=== PATIENT | female | born 1995 | race Caucasian/White ===

== ENCOUNTER 2017-09-08 11:09 | Emergency (ER) | payer SELFPAY ==
[2017-09-08] MEDS ORDERED: NS 0.9% 1000 ML* 1,000 ML IV ONE (12:00)
[2017-09-08] MEDS ORDERED: Metoclopramide IV* 5 MG/ML 2 ML VIAL IV SLOW PU ONE (12:01)
[2017-09-08] MEDS ORDERED: Morphine VIAL* 4 MG/ML VIAL (1 ml vial) IV ONE (12:01)
[2017-09-08 12:20] LABS: ABS Basophils 0 10^3/ul (0-0.2); ABS Eosinophils 0 10^3/ul (0-0.6); ABS Lymphocytes 1.3 10^3/ul (1.0-4.8); ABS Monocytes 0.9 10^3/ul (0-0.8); ABS Neutrophils 18.4 10^3/ul (1.5-7.7); ABS Nucleated RBC 0 10^3/ul; Eosinophil % 0.2 % (0-6); Hematocrit 40 % (35-47); Hemoglobin 13.3 g/dl (12.0-16.0); Lymphocyte % 6.1 % (25-47); Mean Corpuscular HGB Conc 33 g/dl (31-36); Mean Corpuscular Hemoglobin 29 pg (27-31); Mean Corpuscular Volume 87 fL (80-97); Nucleated Red Blood Cells % 0; Platelet Count 375 10^3/ul (150-450); Red Blood Count 4.64 10^6/ul (4.00-5.40); Red Cell Distribution Width 13 % (10.5-15); White Blood Count 20.6 10^3/ul (3.5-10.8)
[2017-09-08 12:42] LABS: EGFR Non-African American 100.4 (>60)
--- NOTE | 2017-09-08 13:08 | RAD ---
INDICATION: Lower pelvic pain. IUD. COMPARISON: June 30, 2010 TECHNIQUE: Longitudinal and transverse transvaginal scans of the pelvis were obtained. FINDINGS: Uterus: The uterus is normal in size. There are no focal masses. The uterus measures 7.6 x 3.2 x 3.9 cm. Endometrial thickness: The endometrial thickness is measured at 1.1 cm. There is an IUD in expected position. Free fluid: There is a small amount of free fluid in the cul-de-sac . Ovaries: The ovaries are normal in size. The right ovary measures 4.8 x 3.3 x 2.9 cm. The left ovary measures 2.5 x 1.9 x 2.0 cm. There is a complex 2.4 x 2.1 x 2.4 cm cyst in the right ovary and a second complex cyst measuring 1.8 x 2.3 x 2.0 cm. Doppler interrogation demonstrates flow to each ovary. Other: None IMPRESSION: IUD IN EXPECTED POSITION. COMPLEX RIGHT OVARIAN CYSTS. CONSIDER FOLLOW-UP TO 3 MENSTRUAL CYCLES
--- NOTE | 2017-09-08 13:12 | ED ---
Abdominal Pain/Female - HPI Summary HPI Summary: Patient here with abdominal pain on and off the past 3 days. Nausea with vomiting started today and abdominal pain is worse. She reports this is in her lower pelvic region, most notably in her right lower quadrant. She denies fever but admits to chills. She denies headache, upper respiratory symptoms ( she is over a cold from last week), neck pain/stiffness, chest pain, shortness of breath, cough, skin changes, numbness, tingling, weakness, vaginal discharge , flank pain, urinary frequency/urgency/dysuria/hematuria. Last bowel movement was yesterday which seemed to be normal however today she had small and strained bowel movement. She admits she's not been eating much the past 3 days due to her abdominal pain and nausea. She also has a history of GERD for which she takes Tums and seems to get relief with these as needed. She only gets heartburn when she eats certain foods or tries to avoid them. She only takes ibuprofen for menstrual cramps once a month but this is not often. She has a copper IUD in place with history of perforation. This does not feel the same. She also admits to sexual activity including oral, vaginal and anal. Denies concern for STD although wouldn't mind being tested. Denies any recent trauma although she has had dyspareunia due to her partner size. Feels safe in her current relationship although she is anxious today she plans to break up with her current partner - states he is "too young for her" and for other reasons. She was going to speak with him later today -mitts this is creating a lot of anxiety for her which can sometimes lead to GI symptoms. - History of Current Complaint Chief Complaint: EDCheriin Stated Complaint: ABD PAIN/VOMITING Time Seen by Provider: 09/08/17 11:28 Hx Obtained From: Patient Hx Last Menstrual Period: 01/06/15 Pain Intensity: 7 Allergies/Adverse Reactions: Allergies Allergy/AdvReac Type Severity Reaction Status Date / Time ibuprofen Allergy See Comment Verified 09/08/17 11:14 PMH/Surg Hx/FS Hx/Imm Hx Previously Healthy: Yes Endocrine/Hematology History: Reports: Hx Unexplained Bleeding - h/o "low platelets" not consistent - unsure why Denies: Hx Anticoagulant Therapy, Hx Diabetes, Hx Thyroid Disease Cardiovascular History: Denies: Hx Hypertension Respiratory History: Reports: Hx Asthma Denies: Hx Chronic Obstructive Pulmonary Disease (COPD) GI History: Reports: Hx Gastroesophageal Reflux Disease - occasionally - controlled w/ diet and Tums Denies: Hx Ulcer History: Reports: Hx Kidney Infection Psychiatric History: Denies: Hx Eating Disorder, Hx of Violent Episodes Against Others - Immunization History Immunizations Up to Date: Yes Infectious Disease History: No Infectious Disease History: Denies: Hx Clostridium Difficile, Hx Hepatitis, Hx Human Immunodeficiency Virus (HIV), Hx of Known/Suspected MRSA, Hx Shingles, Hx Tuberculosis, Hx Known/ Suspected VRE, Hx Known/Suspected VRSA, History Other Infectious Disease, Traveled Outside the [place] in Last 30 Days - Family History Known Family History: Positive: Cardiac Disease, Hypertension, Diabetes - Social History Alcohol Use: Weekly - small amounts Hx Substance Use: No Substance Use Type: Reports: Marijuana Substance Use Comment - Amount & Last Used: every other day Hx Tobacco Use: No Smoking Status (MU): Never Smoked Tobacco Have You Smoked in the Last Year: No Review of Systems Positive: Chills, Fatigue. Negative: Fever Eyes: Negative ENT: Negative Cardiovascular: Negative Respiratory: Negative Positive: Abdominal Pain, Vomiting, Nausea. Negative: Diarrhea Positive: see HPI Musculoskeletal: Negative Skin: Negative Neurological: Negative Positive: Anxious All Other Systems Reviewed And Are Negative: Yes Physical Exam Triage Information Reviewed: Yes Vital Signs On Initial Exam: Initial Vitals Temp Pulse Resp BP Pulse Ox 98.2 F 56 16 146/83 99 09/08/17 11:11 09/08/17 11:11 09/08/17 11:11 09/08/17 11:11 09/08/17 11:11 Vital Signs Reviewed: Yes Appearance: Positive: Well-Nourished, Ill-Appearing - generalized pallor, Pain Distress Skin: Positive: Warm, Skin Color Reflects Adequate Perfusion, Dry Head/Face: Positive: Normal Head/Face Inspection Eyes: Positive: Normal, EOMI, Conjunctiva Clear - anicteric sclera ENT: Positive: Normal ENT inspection, Hearing grossly normal, Pharynx normal - mucosa moist Neck: Positive: Supple, Nontender, No Lymphadenopathy Respiratory/Lung Sounds: Positive: Clear to Auscultation, Breath Sounds Present. Negative: Rales, Rhonchi, Wheezes Cardiovascular: Positive: Normal, RRR, S1, S2 Abdomen Description: Positive: Soft, McBurney's Point Tenderness - no rebounding ; (-) obturator, (-) psoas, Other: - also tender over lower central ab and LLQ - no rebounding. Negative: CVA Tenderness (R), CVA Tenderness (L), Distended, Guarding, Hernia @ Bowel Sounds: Positive: Present Pelvic Exam: Positive: External Exam Normal, No Cerv. Motion Tender, No Masses, Discharge - milky white, Tender Adnexa - Rt (mild), Other - white strings observed from cervical os. Negative: Tender Uterus, Ulcers Musculoskeletal: Positive: Normal, Strength/ROM Intact Neurological: Positive: Normal, Sensory/Motor Intact, Alert, Oriented to Person Place, Time, CN Intact II-III Psychiatric: Positive: Anxious Diagnostics - Vital Signs Vital Signs Temp Pulse Resp BP Pulse Ox 09/08/17 11:11 98.2 F 56 16 146/83 99 - Laboratory Lab Results: Lab Results 09/08/17 09/08/17 09/08/17 Range/Units 12:14 12:14 12:14 WBC 20.6 H (3.5-10.8) 10^3/ul RBC 4.64 (4.00-5.40) 10^6/ul Hgb 13.3 (12.0-16.0) g/dl Hct 40 (35-47) % MCV 87 (80-97) fL MCH 29 (27-31) pg MCHC 33 (31-36) g/dl RDW 13 (10.5-15) % Plt Count 375 (150-450) 10^3/ul MPV 8.0 (7.4-10.4) um3 Neut % (Auto) 89.1 H (38-83) % Lymph % (Auto) 6.1 L (25-47) % [place] % (Auto) 4.4 (0-7) % Eos % (Auto) 0.2 (0-6) % Baso % (Auto) 0.2 (0-2) % Absolute Neuts (auto) 18.4 H (1.5-7.7) 10^3/ul Absolute Lymphs (auto) 1.3 (1.0-4.8) 10^3/ul Absolute Monos (auto) 0.9 H (0-0.8) 10^3/ul Absolute Eos (auto) 0 (0-0.6) 10^3/ul Absolute Basos (auto) 0 (0-0.2) 10^3/ul Absolute Nucleated RBC 0 10^3/ul Nucleated RBC % 0 INR (Anticoag Therapy) 1.00 (0.77-1.02) APTT 24.8 L (26.0-36.3) seconds Sodium 138 L (139-145) mmol/L Potassium 3.7 (3.5-5.0) mmol/L Chloride 102 (101-111) mmol/L Carbon Dioxide 25 (22-32) mmol/L Anion Gap 11 (2-11) mmol/L BUN 10 (6-24) mg/dL Creatinine 0.72 (0.51-0.95) mg/dL Est GFR ( Amer) 129.1 (>60) Est GFR (Non-Af Amer) 100.4 (>60) BUN/Creatinine Ratio 13.9 (8-20) Glucose 128 H (70-100) mg/dL Lactic Acid (0.5-2.0) mmol/L Calcium 9.9 (8.6-10.3) mg/dL Magnesium 2.0 (1.9-2.7) mg/dL Total Bilirubin 0.60 (0.2-1.0) mg/dL AST 12 L (13-39) U/L ALT 14 (7-52) U/L Alkaline Phosphatase 40 (34-104) U/L C-Reactive Protein 1.17 (< 5.00) mg/L Total Protein 7.3 (6.4-8.9) g/dL Albumin 4.4 (3.2-5.2) g/dL Globulin 2.9 (2-4) g/dL Albumin/Globulin Ratio 1.5 (1-3) Lipase < 10 L (11.0-82.0) U/L Beta HCG, Quant < 0.60 mIU/mL 09/08/17 Range/Units 12:14 WBC (3.5-10.8) 10^3/ul RBC (4.00-5.40) 10^6/ul Hgb (12.0-16.0) g/dl Hct (35-47) % MCV (80-97) fL MCH (27-31) pg MCHC (31-36) g/dl RDW (10.5-15) % Plt Count (150-450) 10^3/ul MPV (7.4-10.4) um3 Neut % (Auto) (38-83) % Lymph % (Auto) (25-47) % [place] % (Auto) (0-7) % Eos % (Auto) (0-6) % Baso % (Auto) (0-2) % Absolute Neuts (auto) (1.5-7.7) 10^3/ul Absolute Lymphs (auto) (1.0-4.8) 10^3/ul Absolute Monos (auto) (0-0.8) 10^3/ul Absolute Eos (auto) (0-0.6) 10^3/ul Absolute Basos (auto) (0-0.2) 10^3/ul Absolute Nucleated RBC 10^3/ul Nucleated RBC % INR (Anticoag Therapy) (0.77-1.02) APTT (26.0-36.3) seconds Sodium (139-145) mmol/L Potassium (3.5-5.0) mmol/L Chloride (101-111) mmol/L Carbon Dioxide (22-32) mmol/L Anion Gap (2-11) mmol/L BUN (6-24) mg/dL Creatinine (0.51-0.95) mg/dL Est GFR ( Amer) (>60) Est GFR (Non-Af Amer) (>60) BUN/Creatinine Ratio (8-20) Glucose (70-100) mg/dL Lactic Acid 1.1 (0.5-2.0) mmol/L Calcium (8.6-10.3) mg/dL Magnesium (1.9-2.7) mg/dL Total Bilirubin (0.2-1.0) mg/dL AST (13-39) U/L ALT (7-52) U/L Alkaline Phosphatase (34-104) U/L C-Reactive Protein (< 5.00) mg/L Total Protein (6.4-8.9) g/dL Albumin (3.2-5.2) g/dL Globulin (2-4) g/dL Albumin/Globulin Ratio (1-3) Lipase (11.0-82.0) U/L Beta HCG, Quant mIU/mL Result Diagrams: 09/08/17 12:14 09/08/17 12:14 Lab Statement: Any lab studies that have been ordered have been reviewed, and results considered in the medical decision making process. Re-Evaluation - Re-Evaluation First Eval Change: Improved - pt's pain and nausea improved w/ reglan Abdominal Pain Fem Course/Dx - Course Course Of Treatment: Patient presents with 3 days of abdominal pain which has progressed to nausea with vomiting today. She initially looked pale and anxious and in moderate distress. Her vital signs were within normal limits however her WBCs returned at 20 with mild left shift. Her urinalysis is without acute findings. Pt reports her pain and nausea resolved w/ reglan alone - she does not want to proceed w/ CT scan. Her TVUS reveals Rt complex ovarian cyst (pt reports she's had a h/o these in the past) and IUD in correct position. Her pelvic exam was unremarkable for PID (mild tenderness in Rt adnexa which correlates w/ cyst findings). Pt declines empiric STD tx today - will wait for cx results to tx is needed. Discussed her social situation of relationship issues and anxiety may have triggered majority of her sx. Advised restarting counseling which was helpful in the past. Also to f/u w/ Rt ovarian cyst for repeat imaging. She will additionally control her GERD w/ tums and gentle diet as she hasn't been eating much past few days. Also encouraged hydration to aid in better BM's. Reviewed danger s/sx of when to return to ED. Pt agrees w/ plan. - Diagnoses Provider Diagnoses: Abdominal pain, Right ovarian cyst, Anxiety Discharge - Sign-Out/Discharge Documenting (check all that apply): Discharge/Admit/Transfer - Discharge Plan Condition: Stable Disposition: HOME Patient Education Materials: Acute Abdominal Pain (ED), Ovarian Cyst (ED), Anxiety (ED) Referrals: Maxwell Brennan MD [Primary Care Provider] - Josette Saunders MD [Medical Doctor] - Additional Instructions: The definitive cause of your abdominal pain, nausea and vomiting vomiting was not identified today however you do have a right sided ovarian cyst. This needs to be followed up with your SOFTWARE TECHNICIAN with a repeat ultrasound. Call tomorrow to schedule follow-up. To treat this, you may use NSAIDs along with heat packs and/or castor oil packs. If pain worsens in this area, return to the emergency department. We also discussed that your abdominal pain with nausea and vomiting could've been triggered by your anxiety. You have seen a counselor in the past. It is advised that you reconnect with your counselor due to recent circumstances. Call tomorrow to schedule an appointment. If in the meantime you feel suicidal or homicidal, return to the emergency department. Furthermore, vaginal cultures were taken today. If these are positive you will receive a phone call and antibiotics may be sent to your pharmacy. If you develop worsening of pelvic pain or new onset of vaginal discharge in the meantime, seek medical attention or return to the emergency department. - Billing Disposition and Condition Condition: STABLE Disposition: Home
[2017-09-08 14:38] LABS: Urine Appearance Clear; Urine Blood Negative (Negative); Urine Color Yellow; Urine Ketones 2+ (Negative); Urine Protein Negative (Negative); Urine Specific Gravity 1.017 (1.010-1.030); Urine Urobilinogen Negative (Negative)
[2017-09-08] MEDS ORDERED: Iohexol 300* (CONTRAST) 10 ML SDV IV ONE (14:48)
[2017-09-08 16:08] VITALS: BP 121/84
== END 2017-09-08 17:50 | disposition home or self-care (01) ==
LOC: ED 11:09
DX: R10.31 Right lower quadrant pain (principal); N83.291 Other ovarian cyst, right side; R53.83 Other fatigue; R11.2 Nausea with vomiting, unspecified; F41.9 Anxiety disorder, unspecified; Z97.5 Presence of (intrauterine) contraceptive device; J45.909 Unspecified asthma, uncomplicated; K21.9 Gastro-esophageal reflux disease without esophagitis; Z88.6 Allergy status to analgesic agent; Z82.49 Family history of ischemic heart disease and other diseases of the circulatory system; Z83.3 Family history of diabetes mellitus
CPT/HCPCS: 36415; 76830; 80053; 81003; 83605; 83690; 83735; 84702; 85025; 85610; 85730; 86140; 96361; 96374; 99282; J2270; J2765

== ENCOUNTER 2018-01-20 18:47 | Emergency (ER) | payer SELFPAY ==
[2018-01-20 19:36] VITALS: BP 138/86
--- NOTE | 2018-01-20 20:18 | UC ---
Complaint Female HPI - HPI Summary HPI Summary: 22 year old female presents with onset of dysuria, urinary urgency, feeling of inability to empty bladder completely, and hematuria this morning. Denies fever , chills, back/flank pain, abdominal pain, nausea, vomiting, vaginal discharge, or dyspareunia. - History Of Current Complaint Chief Complaint: UCGU Stated Complaint: POSS UTI Time Seen by Provider: 01/20/18 19:53 Hx Obtained From: Patient Hx Last Menstrual Period: 2 weeks Onset/Duration: Gradual Onset Timing: Intermittent Pain Intensity: 0 Character: Burning Aggravating Factor(s): Urination Alleviating Factor(s): Nothing Associated Signs And Symptoms: Negative: Fever, Back Pain, Vaginal Bleeding/ Discharge, Nausea, Vomiting(# Of Episodes =), Genital Swelling, Genital Blisters - Allergies/Home Medications Allergies/Adverse Reactions: Allergies Allergy/AdvReac Type Severity Reaction Status Date / Time ibuprofen Allergy See Comment Verified 01/20/18 19:37 PMH/Surg Hx/FS Hx/Imm Hx Previously Healthy: Yes - Denies significant PMH Other History Of: Negative For: Anticoagulant Therapy - Surgical History Surgical History: None - Family History Known Family History: Positive: Cardiac Disease, Hypertension, Diabetes - Social History Occupation: Employed Full-time Lives: With Family Alcohol Use: Weekly Substance Use Type: Marijuana Substance Use Comment - Amount & Last Used: every other day Smoking Status (MU): Never Smoked Tobacco Have You Smoked in the Last Year: No Household Exposure Type: Cigarettes - Immunization History Most Recent Influenza Vaccination: n/a Most Recent Tetanus Shot: n/a Most Recent Pneumonia Vaccination: n/a Review of Systems Constitutional: Negative Respiratory: Negative Cardiovascular: Negative Gastrointestinal: Negative Genitourinary: Dysuria, Hematuria, Urgency Is Patient Immunocompromised?: No All Other Systems Reviewed And Are Negative: Yes Physical Exam Triage Information Reviewed: Yes Appearance: Well-Appearing, No Pain Distress, Well-Nourished Vital Signs: Initial Vital Signs Temp 98.5 F 01/20/18 19:32 Pulse 93 01/20/18 19:32 Resp 16 01/20/18 19:32 BP 138/86 01/20/18 19:32 Pulse Ox 100 01/20/18 19:32 Vital Signs Reviewed: Yes Respiratory: Positive: Lungs clear, Normal breath sounds, No respiratory distress Cardiovascular: Positive: RRR, No Murmur Abdomen Description: Positive: Nontender, No Organomegaly, Soft. Negative: CVA Tenderness (R), CVA Tenderness (L), Distended, Guarding Neurological: Positive: Alert Skin Exam: Normal Diagnostics - Laboratory Diagnostic Studies Completed/Ordered: POC UA 3+ protein, 3+ ketones, 3+ blood, 1 + bilirubin, 2+ leukocyte esterase Complaint Female Dx - Course Course Of Treatment: 22 year old female with onset of UTI symptoms this morning. Afebrile. Exam unremarkable. UA consistent with UTI. Will treat with 5 day course of Bactrim DS pending urine culture. Warning symtoms reviewed with patient. Verbalizes understanding and agrees with POC. - Differential Dx/Diagnosis Provider Diagnoses: acute urinary cystitis Discharge - Sign-Out/Discharge Documenting (check all that apply): Patient Departure All imaging exams completed and their final reports reviewed: No Studies - Discharge Plan Condition: Stable Disposition: HOME Prescriptions: Sulfamethox/Trimethoprim DS* [Bactrim DS 800/160 TAB*] 1 tab PO BID #10 tab Patient Education Materials: Urinary Tract Infection in Women (ED) Referrals: Maxwell Brennan MD [Primary Care Provider] - 5 Days (If no improvement in symptoms) Additional Instructions: The urine test was performed in the clinic today is consistent with a urinary tract infection. We will be sending the urine for culture to see what bacteria grow out and make sure that the antibiotic prescribed to you is appropriate for treatment. This will take approximately 48-72 hours for these results. Start Bactrim DS 1 tablet twice a day for 5 days. Be sure to push plenty of fluids. Follow-up with your primary care provider in 5 days if symptoms persist. Seek immediate medical attention if you develop a fever greater than 100.5 F, has severe abdominal pain, persistent vomiting, or any worsening of symptoms. - Billing Disposition and Condition Condition: STABLE Disposition: Home
== END 2018-01-20 20:35 | disposition home or self-care (01) ==
LOC: UCEAST 18:47
DX: N30.01 Acute cystitis with hematuria (principal); Z88.6 Allergy status to analgesic agent
CPT/HCPCS: 81003; 87077; 87086; 87186; 99212; G0463

== ENCOUNTER 2018-09-08 07:18 | Emergency (ER) | payer BC ==
[2018-09-08] MEDS ORDERED: Ondansetron INJ* 2 MG/ML VIAL IV ONE (07:25)
[2018-09-08] MEDS ORDERED: NS 0.9% 1000 ML** 1,000 ML IV ONE (07:25)
[2018-09-08] MEDS ORDERED: Famotidine TAB* 20 MG PO ONE (07:33)
[2018-09-08] MEDS ORDERED: Al Hydrox/Mg Hydrox/Simet LIQ* 30 ML UDC PO ONE (07:33)
--- NOTE | 2018-09-08 07:39 | ED ---
Abdominal Pain/Female - HPI Summary HPI Summary: Patient is a 22 y/o female with hx of endometriosis, GERD, asthma who presents with nausea x 2 days. She notes epigastric pain, vomiting x 2 episodes last night, and liquidy diarrhea beginning this morning. Took Tums last night without relief. Denies fevers, chills, headache, chest pain, cough, bloody stools, back pain, urinary symptoms. She states she has chronic right pelvic endometrial pain, worse today d/t current menstrual period. States her GERD often presents with nausea. Denies abdominal surgeries. - History of Current Complaint Chief Complaint: EDAbdPain Stated Complaint: NAUSEA AND VOMITTING PER PT Time Seen by Provider: 09/08/18 07:24 Hx Obtained From: Patient Hx Last Menstrual Period: Current Onset/Duration: Sudden Onset Timing: Constant Severity Initially: Mild Severity Currently: Mild Pain Intensity: 4 Location: Epigastric, Other - Right pelvic. Radiates: No Character: Cramping Aggravating Factor(s): Nothing Alleviating Factor(s): Nothing Associated Signs and Symptoms: Positive: Nausea, Vomiting, Diarrhea. Negative: Fever, Cough, Chest Pain, Back Pain, Blood in Stool, Urinary Symptoms Allergies/Adverse Reactions: Allergies Allergy/AdvReac Type Severity Reaction Status Date / Time ibuprofen Allergy See Comment Verified 09/08/18 07:23 PMH/Surg Hx/FS Hx/Imm Hx Previously Healthy: No Endocrine/Hematology History: Reports: Hx Unexplained Bleeding - h/o "low platelets" not consistent - unsure why Denies: Hx Anticoagulant Therapy, Hx Diabetes, Hx Thyroid Disease Cardiovascular History: Denies: Hx Hypertension Respiratory History: Reports: Hx Asthma Denies: Hx Chronic Obstructive Pulmonary Disease (COPD) GI History: Reports: Hx Gastroesophageal Reflux Disease - occasionally - controlled w/ diet and Tums Denies: Hx Ulcer History: Reports: Hx Kidney Infection, Other Problems/Disorders - Endometriosis. Psychiatric History: Denies: Hx Eating Disorder, Hx of Violent Episodes Against Others Infectious Disease History: No Infectious Disease History: Denies: Hx Clostridium Difficile, Hx Hepatitis, Hx Human Immunodeficiency Virus (HIV), Hx of Known/Suspected MRSA, Hx Shingles, Hx Tuberculosis, Hx Known/ Suspected VRE, Hx Known/Suspected VRSA, History Other Infectious Disease, Traveled Outside the [place] in Last 30 Days - Family History Known Family History: Positive: Cardiac Disease, Hypertension, Diabetes - Social History Alcohol Use: Weekly Hx Substance Use: No Substance Use Type: Reports: Marijuana Substance Use Comment - Amount & Last Used: every other day Hx Tobacco Use: Yes Smoking Status (MU): Current Some Day Smoker Type: Cigarettes Amount Used/How Often: Socially Have You Smoked in the Last Year: No Review of Systems Negative: Fever, Chills Negative: Chest Pain Negative: Cough Positive: Abdominal Pain - Epigastric., Vomiting, Diarrhea, Nausea Negative: dysuria, frequency, urgency Negative: Headache All Other Systems Reviewed And Are Negative: Yes Physical Exam Triage Information Reviewed: Yes Vital Signs On Initial Exam: Initial Vitals Temp Pulse Resp BP Pulse Ox 98.3 F 84 17 118/89 99 09/08/18 07:21 09/08/18 07:21 09/08/18 07:21 09/08/18 07:21 09/08/18 07:21 Vital Signs Reviewed: Yes Appearance: Positive: Well-Appearing, No Pain Distress Skin: Positive: Warm, Skin Color Reflects Adequate Perfusion, Dry Head/Face: Positive: Normal Head/Face Inspection Eyes: Positive: Normal, Conjunctiva Clear ENT: Positive: Normal ENT inspection Neck: Positive: Supple. Negative: Nuchal Rigidity Respiratory/Lung Sounds: Positive: Clear to Auscultation, Breath Sounds Present. Negative: Rales, Rhonchi, Wheezes Cardiovascular: Positive: RRR. Negative: Murmur, Rub Abdomen Description: Positive: Soft, Other: - mild pain R pelvis which pt states is chronic. Negative: Nontender - Chronis right pelvic tenderness, c/w endometriosis. No tenderness of remaining abdomen., Distended, McBurney's Point Tenderness, Peritoneal Signs Bowel Sounds: Positive: Present, Hypoactive Musculoskeletal: Positive: Normal, Strength/ROM Intact Neurological: Positive: Normal, Sensory/Motor Intact, Alert, Oriented to Person Place, Time Psychiatric: Positive: Normal Diagnostics - Vital Signs Vital Signs Temp Pulse Resp BP Pulse Ox 09/08/18 07:21 98.3 F 84 17 118/89 99 - Laboratory Lab Results: Laboratory Results - last 24 hr 09/08/18 09/08/18 09/08/18 07:32 07:32 07:32 WBC 8.8 RBC 4.92 H Hgb 14.0 Hct 42 MCV 86 MCH 29 MCHC 33 RDW 13 Plt Count 320 MPV 8.2 Neut % (Auto) 66.7 Lymph % (Auto) 21.7 [place] % (Auto) 10.3 Eos % (Auto) 0.9 Baso % (Auto) 0.4 Absolute Neuts (auto) 5.8 Absolute Lymphs (auto) 1.9 Absolute Monos (auto) 0.9 H Absolute Eos (auto) 0.1 Absolute Basos (auto) 0.0 Absolute Nucleated RBC 0.0 Nucleated RBC % 0.1 Sodium 138 Potassium 3.5 Chloride 105 Carbon Dioxide 24 Anion Gap 9 BUN 12 Creatinine 0.78 Est GFR ( Amer) 109.8 Est GFR (Non-Af Amer) 90.7 BUN/Creatinine Ratio 15.4 Glucose 84 Lactic Acid 0.6 Calcium 9.6 Total Bilirubin 0.60 AST 14 ALT 14 Alkaline Phosphatase 41 C-Reactive Protein 12.58 H Total Protein 7.1 Albumin 4.4 Globulin 2.7 Albumin/Globulin Ratio 1.6 Lipase < 10 L Beta HCG, Quant < 0.60 Result Diagrams: 09/08/18 07:32 09/08/18 07:32 Lab Statement: Any lab studies that have been ordered have been reviewed, and results considered in the medical decision making process. Re-Evaluation - Re-Evaluation First re-eval Re-Evaluation Time: 08:10 Change: Improved Abdominal Pain Fem Course/Dx - Course Course Of Treatment: 22 y/o female with chronic right pelvic pain secondary to endometriosis and GERD, presenting with nausea, vomiting, diarrhea and epigastric discomfort. Improved with Pepcid and Maalox in the ED. Symptoms consistent with gastroenteritis and GERD. Discharged to home with instructions to stay hydrated, take Tums and Pepcid as needed for sx. To f/u with PCP. Labs benign. Pt seen in conjunction with the PA student. - Diagnoses Differential Diagnosis: Positive: Gall Bladder Disease, Irritable Bowel Syndrome , Ovarian Cyst, Pancreatitis, Provider Diagnoses: Gastroenteritis, History of gastroesophageal reflux (GERD) Discharge - Sign-Out/Discharge Documenting (check all that apply): Patient Departure Patient Received Moderate/Deep Sedation with Procedure: No - Discharge Plan Condition: Improved Disposition: HOME Prescriptions: Famotidine TAB* [Pepcid 20 MG TAB*] 20 mg PO BID PRN #30 tab PRN Reason: GERD Ondansetron ODT TAB* [Zofran 4 MG Odt TAB*] 4 mg PO Q8H PRN #12 tab.odt PRN Reason: Nausea Patient Education Materials: Gastroenteritis (ED), Gastroesophageal Reflux Disease (ED) Forms: *Work Release Referrals: Maxwell Brennan MD [Primary Care Provider] - Additional Instructions: [place] diet as tolerated. Drink plenty of fluids. Return with fever, increased abdominal pain, especially in the right lower abdomen, worse, new symptoms or other concerns. Call your doctor today to schedule prompt follow-up. - Billing Disposition and Condition Condition: IMPROVED Disposition: Home - Attestation Statements Document Initiated by Heidi: Yes Documenting Scribe: KEEGAN Veloz Provider For Whom Heidi is Documenting (Include Credential): Dr. Isaias Burnette Scribe Attestation: Thad Hobbs PA-S, scribed for Dr. Isaias Burnette on 09/08/18 at 0822. Scribe Documentation Reviewed: Yes Provider Attestation: The documentation as recorded by the Thad chacko PA-S accurately reflects the service I personally performed and the decisions made by Dr. Isaias awan Status of Scrsary Document: Viewed
[2018-09-08 07:47] LABS: ABS Eosinophils 0.1 10^3/ul (0-0.6); ABS Lymphocytes 1.9 10^3/ul (1.0-4.8); ABS Monocytes 0.9 10^3/ul (0-0.8); ABS Neutrophils 5.8 10^3/ul (1.5-7.7); Eosinophil % 0.9 %; Hematocrit 42 % (35-47); Lymphocyte % 21.7 %; Mean Corpuscular HGB Conc 33 g/dL (31-36); Mean Corpuscular Hemoglobin 29 pg (27-31); Mean Corpuscular Volume 86 fL (80-97); Mean Platelet Volume 8.2 fL (7.4-10.4); Nucleated Red Blood Cells % 0.1; Platelet Count 320 10^3/uL (150-450); Red Blood Count 4.92 10^6 /uL (3.70-4.87); Red Cell Distribution Width 13 % (10-15); White Blood Count 8.8 10^3/uL (3.5-10.8)
[2018-09-08 07:59] LABS: ALT 14 U/L (7-52); AST 14 U/L (13-39); Albumin 4.4 g/dL (3.2-5.2); Albumin/Globulin Ratio 1.6 (1-3); Alkaline Phosphatase 41 U/L (34-104); Anion Gap 9 mmol/L (2-11); BUN/Creatinine Ratio 15.4 (8-20); Blood Urea Nitrogen 12 mg/dL (6-24); C Reactive Protein 12.58 mg/L (<8.01); CO2 Carbon Dioxide 24 mmol/L (22-32); Calcium 9.6 mg/dL (8.6-10.3); Chloride 105 mmol/L (101-111); EGFR African American 109.8 (>60); EGFR Non-African American 90.7 (>60); Globulin 2.7 g/dL (2-4); Glucose 84 mg/dL (70-100); Potassium 3.5 mmol/L (3.5-5.0); Sodium 138 mmol/L (135-145); Total Protein 7.1 g/dL (6.4-8.9)
[2018-09-08 08:06] LABS: HCG Pregnancy < 0.60 mIU/mL
[2018-09-08 08:56] VITALS: BP 139/98
[2018-09-08 09:04] LABS: Urine Appearance Clear; Urine Bacteria Absent (Absent); Urine Bilirubin Negative (Negative); Urine Blood 3+ (Negative); Urine Color Yellow; Urine Glucose Negative (Negative); Urine Ketones 1+ (Negative); Urine Nitrite Negative (Negative); Urine Protein Negative (Negative); Urine Red Blood Cell 3+(>10/hpf) (Absent); Urine Specific Gravity 1.015 (1.010-1.030); Urine Squamous Epithelial Cell Present (Absent); Urine Urobilinogen Negative (Negative); Urine White Blood Cell Trace(0-5/hpf) (Absent)
== END 2018-09-08 08:54 | disposition home or self-care (01) ==
LOC: ED 07:18
DX: K52.9 Noninfective gastroenteritis and colitis, unspecified (principal); K21.9 Gastro-esophageal reflux disease without esophagitis; G89.29 Other chronic pain; R10.2 Pelvic and perineal pain; N80.9 Endometriosis, unspecified; Z72.0 Tobacco use; Z88.6 Allergy status to analgesic agent
CPT/HCPCS: 36415; 80053; 81003; 81015; 83605; 83690; 84702; 85025; 86140; 87086; 96374; 99283; A9270-GY; J2405

== ENCOUNTER 2018-10-14 13:58 | Emergency (ER) | payer BC ==
[2018-10-14 14:11] VITALS: BP 109/66
--- NOTE | 2018-10-14 14:24 | UC ---
Throat Pain/Nasal [place] HPI - HPI Summary HPI Summary: 23 yo female with sore throat and chills x 1 day some myalgias no f/c no n/v/d no cp or sob - History of Current Complaint Chief Complaint: UCGeneralIllness Stated Complaint: SORE THROAT Time Seen by Provider: 10/14/18 14:17 Hx Obtained From: Patient Hx Last Menstrual Period: 10/02/18 Onset/Duration: Gradual Onset Severity: Mild Pain Intensity: 3 Pain Scale Used: 0-10 Numeric Cough: Nonproductive Associated Signs & Symptoms: Positive: Negative - Epiglottits Risk Factors Epiglottis Risk Factors: Negative - Allergies/Home Medications Allergies/Adverse Reactions: Allergies Allergy/AdvReac Type Severity Reaction Status Date / Time ibuprofen Allergy See Comment Verified 10/14/18 14:11 Home Medications: Home Medications Sertraline* [Zoloft*] 1 tab PO DAILY 10/14/18 [History Confirmed 10/14/18] PMH/Surg Hx/FS Hx/Imm Hx Previously Healthy: Yes Respiratory History: Asthma Other History Of: Negative For: Anticoagulant Therapy - Surgical History Surgical History: None - Family History Known Family History: Positive: Cardiac Disease, Hypertension, Diabetes - Social History Alcohol Use: Occasionally Substance Use Type: Marijuana Substance Use Comment - Amount & Last Used: every other day Smoking Status (MU): Current Some Day Smoker Type: Cigarettes Amount Used/How Often: Socially Have You Smoked in the Last Year: No Household Exposure Type: Cigarettes - Immunization History Most Recent Influenza Vaccination: n/a Most Recent Tetanus Shot: n/a Most Recent Pneumonia Vaccination: n/a Review of Systems All Other Systems Reviewed And Are Negative: Yes Constitutional: Positive: Chills Skin: Positive: Negative Eyes: Positive: Negative ENT: Positive: Sore Throat Respiratory: Positive: Negative Cardiovascular: Positive: Negative Gastrointestinal: Positive: Negative Genitourinary: Positive: Negative Motor: Positive: Negative Neurovascular: Positive: Negative Musculoskeletal: Positive: Negative Neurological: Positive: Negative Psychological: Positive: Negative Physical Exam Triage Information Reviewed: Yes Appearance: Well-Appearing, No Pain Distress, Well-Nourished Vital Signs: Initial Vital Signs Temp 98.5 F 10/14/18 14:08 Pulse 67 10/14/18 14:08 Resp 18 10/14/18 14:08 BP 109/66 10/14/18 14:08 Pulse Ox 98 10/14/18 14:08 Vital Signs Reviewed: Yes Eyes: Positive: Conjunctiva Clear ENT: Positive: Hearing grossly normal, Pharyngeal erythema, Tonsillar swelling, Uvula midline. Negative: Nasal congestion, Nasal drainage, TMs normal, Trismus , Muffled voice, Hoarse voice, Dental tenderness, Sinus tenderness Neck: Positive: Supple, Nontender, Enlarged Nodes @ - ant cerv Respiratory: Positive: Lungs clear, Normal breath sounds, No respiratory distress, No accessory muscle use Cardiovascular: Positive: RRR, No Murmur Musculoskeletal: Positive: ROM Intact, No Edema Neurological: Positive: Alert Psychological Exam: Normal Skin Exam: Normal Skin: Positive: Rashes Throat Pain/Nasal Course/Dx - Course Course Of Treatment: strep- - Differential Dx/Diagnosis Provider Diagnosis: Pharyngitis Discharge - Sign-Out/Discharge Documenting (check all that apply): Patient Departure All imaging exams completed and their final reports reviewed: No Studies - Discharge Plan Condition: Stable Disposition: HOME Prescriptions: predniSONE [Deltasone 20 MG TAB] 40 mg PO DAILY #10 tab Patient Education Materials: Pharyngitis (ED) Forms: *Work Release Referrals: Maxwell Brennan MD [Primary Care Provider] - Additional Instructions: strep test negative recheck for new or worsening symptoms or if not better in 3-4 days rest fluids tylenol - Billing Disposition and Condition Condition: STABLE Disposition: Home
== END 2018-10-14 14:50 | disposition home or self-care (01) ==
LOC: UCEAST 13:58
DX: J02.9 Acute pharyngitis, unspecified (principal); J45.909 Unspecified asthma, uncomplicated; F17.210 Nicotine dependence, cigarettes, uncomplicated
CPT/HCPCS: 87651; 99212; G0463

== ENCOUNTER 2019-05-12 09:44 | Emergency (ER) | payer BC, OTHER ==
[2019-05-12 09:53] VITALS: BP 105/66
--- NOTE | 2019-05-12 10:14 | UC ---
FLU HPI - HPI Summary HPI Summary: 23 yo female presents with flu-like symptoms. She tells me that 2 days ago she developed chills, fatigue, body aches, and nausea. She was exposed to the flu last week and thinks she has it now. She has not been taking anything OTC for her symptoms. She denies SOB, chest pain, abdominal pain, vomiting, dysuria. - History of Current Complaint Chief Complaint: UCGeneralIllness Stated Complaint: FLU LIKE SYMPTOMS Time Seen by Provider: 05/12/19 10:14 Hx Obtained From: Patient Hx Last Menstrual Period: 05/08/19 Onset/Duration: Sudden Onset Severity Currently: Mild Severity Initially: Mild Pain Intensity: 4 Pain Scale Used: 0-10 Numeric - Allergy/Home Medications Allergies/Adverse Reactions: Allergies Allergy/AdvReac Type Severity Reaction Status Date / Time ibuprofen Allergy See Comment Verified 05/12/19 09:53 PMH/Surg Hx/FS Hx/Imm Hx GI/ History: Gastroesophageal Reflux Psychological History: Anxiety, Depression Other History Of: Negative For: Anticoagulant Therapy - Surgical History Surgical History: None - Family History Known Family History: Positive: Cardiac Disease, Hypertension, Diabetes - Social History Occupation: Employed Full-time Lives: With Family Alcohol Use: Occasionally Substance Use Type: Marijuana Substance Use Comment - Amount & Last Used: every other day Smoking Status (MU): Former Smoker Type: Cigarettes Amount Used/How Often: Socially Have You Smoked in the Last Year: No Household Exposure Type: Cigarettes - Immunization History Most Recent Influenza Vaccination: n/a Most Recent Tetanus Shot: n/a Most Recent Pneumonia Vaccination: n/a Review of Systems All Other Systems Reviewed And Are Negative: No Constitutional: Positive: Chills, Fatigue, Other - Body aches Skin: Positive: Negative Eyes: Positive: Negative ENT: Positive: Negative Respiratory: Positive: Cough Cardiovascular: Positive: Negative Gastrointestinal: Positive: Negative Neurological/Mental Status: Positive: Negative Psychological: Positive: Negative Physical Exam - Summary Physical Exam Summary: GENERAL: NAD. WDWN. No pain distress. SKIN: No rashes, sores, lesions, or open wounds. HEENT: Head: AT/NC Eyes: EOM intact. Conjunctiva clear without inflammation or discharge. Ears: Hearing grossly normal. TMs intact, no bulging, erythema, or edema. Nose: Nasal mucosa pink and moist. NTTP maxillary and frontal sinus. Throat: Posterior oropharynx without exudates, erythema, or tonsillar enlargement. Uvula midline. NECK: Supple. Nontender. No lymphadenopathy. CHEST: CTAB. No r/r/w. No accessory muscle use. Breathing comfortably and in no distress. CV: RRR. Pulses intact. Cap refill <2seconds NEURO: Alert. PSYCH: Age appropriate behavior. Triage Information Reviewed: Yes Vital Signs: Initial Vital Signs Temp 98.2 F 05/12/19 09:50 Pulse 99 05/12/19 09:50 Resp 20 05/12/19 09:50 BP 105/66 05/12/19 09:50 Pulse Ox 98 05/12/19 09:50 Laboratory Tests 05/12/19 10:31 Influenza B (Rapid) Positive H Vital Signs Reviewed: Yes Flu Course/Dx - Course Course Of Treatment: POC flu positive. Rx for tamiflu - Differential Dx/Diagnosis Provider Diagnosis: Influenza Discharge ED - Sign-Out/Discharge Documenting (check all that apply): Patient Departure All imaging exams completed and their final reports reviewed: No Studies - Discharge Plan Condition: Stable Disposition: HOME Prescriptions: Oseltamivir CAP* [Tamiflu CAP*] 75 mg PO BID #10 cap Patient Education Materials: Influenza (ED) Forms: *Work Release Referrals: Maxwell Brennan MD [Primary Care Provider] - Additional Instructions: Most people with the flu recover within one to two weeks without treatment. However, serious complications of the flu can occur. Go to the ER immediately if you: -- You feel short of breath or have trouble breathing -- You have pain or pressure in your chest or stomach -- You have signs of being dehydrated, such as dizziness when standing or not passing urine -- You feel confused -- You cannot stop vomiting or you cannot drink enough fluids There are several groups of people who are at increased risk for flu complications. These include women, young children (<5 years of age and especially <2 years of age), people older than 65 years of age, and people with certain diseases such as chronic lung disease (such as asthma), heart disease, diabetes, immunosuppressing conditions (such as HIV infection or transplantation), and some other diseases. Treat symptoms Treating the symptoms of influenza can help you to feel better but will not make the flu go away faster. -- Rest until the flu is fully resolved, especially if the illness has been severe. -- Fluids Drink enough fluids so that you do not become dehydrated. One way to yarn texture machine operator if you are drinking enough is to look at the color of your urine. Normally, urine should be light yellow to nearly colorless. If you are drinking enough, you should pass urine every three to five hours. -- Acetaminophen (sample brand name: Tylenol) can relieve fever, headache, and muscle aches. Aspirin and medicines that include aspirin (eg, bismuth subsalicylate [sample brand name: Pepto-Bismol]) are not recommended for children under 18 because aspirin can lead to a serious disease called Maninder syndrome. -- Cough medicines are not usually helpful; cough usually resolves without treatment. We do not recommend cough or cold medicine for children under age 6 years. Antiviral treatment Antiviral medicines can be used to treat or prevent influenza. When used as a treatment, the medicine does not eliminate flu symptoms, although it can reduce the severity and duration of symptoms by about one day. Not every person with influenza needs an antiviral medicine, but some people do; the decision is based upon several factors. If you are severely ill and/or have risk factors for developing complications of influenza, you will need an antiviral agent. People who are only mildly ill and have no risk factors for complications usually do not need to be treated with antiviral medication. - Billing Disposition and Condition Condition: STABLE Disposition: Home
[2019-05-12 10:34] LABS: Influenza B Molecular POSITIVE (Negative)
== END 2019-05-12 10:56 | disposition home or self-care (01) ==
LOC: UCEAST 09:44
DX: J11.1 Influenza due to unidentified influenza virus with other respiratory manifestations (principal); Z88.4 Allergy status to anesthetic agent; Z87.891 Personal history of nicotine dependence
CPT/HCPCS: 99212; G0463

== ENCOUNTER 2019-05-14 11:00 | Emergency (ER) | payer OTHER ==
[2019-05-14 12:38] VITALS: BP 119/76
--- NOTE | 2019-05-14 12:45 | UC ---
FLU HPI - HPI Summary HPI Summary: 23 yo diagnosed with influenza B on 05/12; returns today due to worsening symptoms of chest pain. - History of Current Complaint Chief Complaint: UCRespiratory Stated Complaint: CHEST CONGESTION, COUGH Time Seen by Provider: 05/14/19 12:41 Hx Obtained From: Patient Hx Last Menstrual Period: 05/08/2019 Onset/Duration: Gradual Onset, Lasting Days Pain Intensity: 4 - Allergy/Home Medications Allergies/Adverse Reactions: Allergies Allergy/AdvReac Type Severity Reaction Status Date / Time ibuprofen Allergy See Comment Verified 05/14/19 12:39 PMH/Surg Hx/FS Hx/Imm Hx Previously Healthy: Yes Respiratory History: Asthma Psychological History: Anxiety, Post Traumatic Stress Disorder Other History Of: Negative For: Anticoagulant Therapy - Surgical History Surgical History: None - Family History Known Family History: Positive: Cardiac Disease, Hypertension, Diabetes - Social History Occupation: Employed Full-time Alcohol Use: Occasionally Substance Use Type: Marijuana Substance Use Comment - Amount & Last Used: every other day Smoking Status (MU): Former Smoker Type: Cigarettes Amount Used/How Often: Socially Have You Smoked in the Last Year: No Household Exposure Type: Cigarettes - Immunization History Most Recent Influenza Vaccination: n/a Most Recent Tetanus Shot: n/a Most Recent Pneumonia Vaccination: n/a Review of Systems All Other Systems Reviewed And Are Negative: Yes Constitutional: Positive: Fever, Fatigue Skin: Positive: Negative Eyes: Positive: Negative ENT: Positive: Sore Throat Respiratory: Positive: Shortness Of Breath, Cough Cardiovascular: Positive: Chest Pain Gastrointestinal: Positive: Negative Genitourinary: Positive: Negative Motor: Positive: Negative Neurovascular: Positive: Negative Musculoskeletal: Positive: Myalgia Neurological/Mental Status: Positive: Headache Psychological: Positive: Negative Is Patient Immunocompromised?: No Physical Exam Triage Information Reviewed: Yes Appearance: Ill-Appearing Vital Signs: Initial Vital Signs Temp 101.7 F 05/14/19 12:35 Pulse 102 05/14/19 12:35 Resp 18 05/14/19 12:35 BP 119/76 05/14/19 12:35 Pulse Ox 98 05/14/19 12:35 Eyes: Positive: Conjunctiva Clear ENT: Positive: Pharyngeal erythema, TMs normal Neck: Positive: Supple, Nontender, No Lymphadenopathy Respiratory: Positive: Decreased breath sounds, Wheezing Cardiovascular: Positive: RRR, No Murmur, Pulses Normal Musculoskeletal Exam: Normal Neurological Exam: Normal Psychological Exam: Other - anxious Skin Exam: Normal Diagnostics - Radiology No standard instances Radiology Interpretation Completed By: Radiologist - Dr. Zhu: no acute cardiopulmonary process Flu Course/Dx - Course Course Of Treatment: Ensure use of albuterol, and rx given for use at home, along with a spacer to improve delivery. Chest xray does not show evidence of pneumonia. - Differential Dx/Diagnosis Differential Diagnosis/HQI/PQRI: Influenza, Pneumonia Provider Diagnosis: Influenza B Discharge ED - Sign-Out/Discharge Documenting (check all that apply): Patient Departure All imaging exams completed and their final reports reviewed: Yes - Discharge Plan Condition: Stable Disposition: HOME Prescriptions: Albuterol HFA INHALER* [Ventolin HFA Inhaler*] 2 puff INH Q6H PRN #1 mdi PRN Reason: Wheezing Patient Education Materials: Influenza (ED) Forms: *Work Release Referrals: Maxwell rBennan MD [Primary Care Provider] - Additional Instructions: Your chest xray did not show evidence of pneumonia. use albuterol up to 4 times per day to improve air entry into your lungs, and continue use of cough suppressants. Off work through 05/17/19. - Billing Disposition and Condition Condition: STABLE Disposition: Home
[2019-05-14] MEDS ORDERED: Albuterol 2.5 MG/3 ML NEB.SOL* (0.083%) INH ONE (12:54)
== END 2019-05-14 13:45 | disposition home or self-care (01) ==
LOC: UCEAST 11:00
DX: J10.1 Influenza due to other identified influenza virus with other respiratory manifestations (principal); J45.909 Unspecified asthma, uncomplicated; Z87.891 Personal history of nicotine dependence; Z88.8 Allergy status to other drugs, medicaments and biological substances
CPT/HCPCS: 71046; 99212; G0463

== ENCOUNTER 2019-05-18 12:24 | Emergency (ER) | payer OTHER ==
[2019-05-18 13:12] VITALS: BP 113/75
--- NOTE | 2019-05-18 13:37 | UC ---
Throat Pain/Nasal [place] HPI - HPI Summary HPI Summary: Pt presents to with 2 complaints. pt has had some nausea, little vomiting. pt states over last 3 days feels progressive film on tongue - concerned she has thrush. pt has previousy had -no recent antibiotics. no fever, chills x 3 days. States was diagnosed with the flu approx 1 week ago - was taking albuterol inhaler. states feesling better except for nausea. sinus congestion, + PND. no abdominal pain, no diarrhea + sick contact. States not . 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 - History of Current Complaint Chief Complaint: UCGeneralIllness Stated Complaint: NAUSEA,TONGUE COMPLAINT Time Seen by Provider: 05/18/19 13:33 Hx Obtained From: Patient Hx Last Menstrual Period: last week Onset/Duration: Gradual Onset Pain Intensity: 5 - Allergies/Home Medications Allergies/Adverse Reactions: Allergies Allergy/AdvReac Type Severity Reaction Status Date / Time ibuprofen Allergy See Comment Verified 05/18/19 13:09 Home Medications: Home Medications Cetirizine* [ZyrTEC*] 1 tab PO DAILY 07/02/13 [History Confirmed 05/18/19] Famotidine TAB* [Pepcid 20 MG TAB*] 20 mg PO BID PRN #30 tab 09/08/18 [Rx Confirmed 05/18/19] Sertraline* [Zoloft*] 1 tab PO DAILY 10/14/18 [History Confirmed 05/18/19] Albuterol HFA INHALER* [Ventolin HFA Inhaler*] 2 puff INH Q6H PRN #1 mdi [Rx Confirmed 05/18/19] Acetaminophen [Tylophen] 1,000 mg PO ONCE PRN 05/18/19 [History Confirmed ] Clotrimazole SAY* [Mycelex Say*] 10 mg MT SEE INSTRUCTIONS #35 say [Rx] Ondansetron HCl [Zofran 4 MG TAB] 1 tab PO ONCE PRN 05/18/19 [History Confirmed 05/18/19] PMH/Surg Hx/FS Hx/Imm Hx Other History Of: Negative For: Anticoagulant Therapy - Surgical History Surgical History: Yes Surgery Procedure, Year, and Place: oral surgery - Family History Known Family History: Positive: Cardiac Disease, Hypertension, Diabetes - Social History Alcohol Use: Weekly Substance Use Type: Marijuana Substance Use Comment - Amount & Last Used: every other day Smoking Status (MU): Former Smoker Type: Cigarettes Amount Used/How Often: Socially Have You Smoked in the Last Year: No Household Exposure Type: Cigarettes - Immunization History Most Recent Influenza Vaccination: n/a Most Recent Tetanus Shot: n/a Most Recent Pneumonia Vaccination: n/a Review of Systems All Other Systems Reviewed And Are Negative: Yes Constitutional: Positive: Fatigue Eyes: Positive: Negative ENT: Positive: Other - film on tongue Respiratory: Positive: Negative Cardiovascular: Positive: Negative Gastrointestinal: Positive: Nausea Genitourinary: Positive: Negative Physical Exam - Summary Physical Exam Summary: Vital Signs Reviewed: Yes A+Ox3, tired appearing Eyes: Conjunctiva Clear, KOLE. EOM intact and full ENT: Hearing grossly normal TM x 2 clear, tongue with coating - some removed with tongue depressor - no bleeding, no lesions, no coating to oropharynx, palate mmoist lips dry, uvula midline, no exudate, no erythema Neck: Positive: Supple Respiratory: Positive: No respiratory distress, No accessory muscle use + CTA throughout no w/r Cardiovascular: RRR nl s1, s2 no m/r CBT <2 sec abd soft + BS nt/nd no guarding, no distension Musculoskeletal Exam: NEVILLE x 4 without difficulty Strength Intact, ROM Intact Neurological: Positive: Alert, + sensation throughout Psychological: Positive: Normal 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 + water and mj maksim. eating crackers. will dc with worl note. return precautions discussed Throat Pain/Nasal Course/Dx - Course Course Of Treatment: pt with recent influenza - sx improved but continued with mild nausea no vomiting. pt also with thrush appearing coating to tongue will check urine zofran oral hydrate nystatin pt comfortable and in agreement with plan - Differential Dx/Diagnosis Provider Diagnosis: Nausea, Thrush, oral Discharge ED - Sign-Out/Discharge Documenting (check all that apply): Patient Departure All imaging exams completed and their final reports reviewed: No Studies - Discharge Plan Condition: Stable Disposition: HOME Prescriptions: Clotrimazole SAY* [Mycelex Say*] 10 mg MT SEE INSTRUCTIONS #35 say Patient Education Materials: Oral Candidiasis (ED), Acute Nausea and Vomiting ( ED) Forms: *Gen. Provider Communication, *Work Release Referrals: Maxwell Brennan MD [Primary Care Provider] - Additional Instructions: For your oral lesion: Take Clotrimazole tabs exactly as prescribed for 7 days Rinse your mouth with warm salt water 2-3 times a day It is recommended you wait for your vomiting to improve before starting this treatment For your nausea: Take zofran as prescribed every 4-6 hours for nausea For the first 6 hours, eat and drink clears (water, mj maksim, soup broth, jello, popsicles, Gatorade). If you tolerate this okay, add bland foods such as dry toast, scrambled eggs, crackers. Wait until you are feeling better for 24 hours before eating spicy food, acidic food, tomato based food, fried food. If you develop abodominal pain, uncontrolled vomiting, fevers, decreased urine production or other concerns it is recommended you go to the emergency department for further evaluation and treatment - Billing Disposition and Condition Condition: STABLE Disposition: Home
[2019-05-18] MEDS ORDERED: Ondansetron ODT TAB* 4 MG SL ONE (13:52)
== END 2019-05-18 14:45 | disposition home or self-care (01) ==
LOC: UCEAST 12:24
DX: R11.0 Nausea (principal); B37.9 Candidiasis, unspecified; Z88.6 Allergy status to analgesic agent; Z87.891 Personal history of nicotine dependence
CPT/HCPCS: 81003; 99212; A9270-GY; G0463